=== PATIENT | female | born 1995 | race Caucasian/White ===

== ENCOUNTER 2022-11-10 13:38 | Emergency (ER) | payer OTHER ==
[~2022-11-10] VITALS: Ht 160 cm; Wt 68.0 kg
[~2022-11-10 13:38] MED LIST: ACET-1182 PO; CIPR500T4 PO; GABA-636 PO; ONDA4TAB12 PO
[2022-11-10 13:44] VITALS: BP 142/100
--- NOTE | 2022-11-10 13:50 | NUR ---
27 yo/f presents to ed for moy cath insertion pt reports she normally has a moy cath but accidentally pulled it out yesterday and needs it replaced, pt also reports sacral wound needing packaging. denies any pain, fevers or other symptoms. pmh: paralysis allergies: morphine
--- NOTE | 2022-11-10 13:53 | NUR ---
assisted to [facility] 5
--- NOTE | 2022-11-10 14:40 | NUR ---
# 18 FR Zavala catheter with 10 ml utilizing sterile technique. Immediate return of 100 ml yellow urine noted. Bedside drainage bag placed below level of bladder on leg bag. Urine sample collected and sent to lab. Pt tolerated procedure well.
--- NOTE | 2022-11-10 14:50 | NUR ---
wet to dry packing per ermd robles for sacrum wound completed.
[2022-11-10 14:57] VITALS: BP 138/82
--- NOTE | 2022-11-10 15:11 | NUR ---
Patient discharged with v/s stable. Written and verbal after care instructions given and explained. Patient verbalized understanding. Wheel Chair Assisted. All questions addressed prior to discharge. Advised to follow up with PMD.
== END 2022-11-10 14:57 | disposition home or self-care (01) ==
LOC: MED 13:38
DX: Z46.6 Encounter for fitting and adjustment of urinary device (principal); L89.159 Pressure ulcer of sacral region, unspecified stage; Z79.899 Other long term (current) drug therapy; Z79.2 Long term (current) use of antibiotics; Z88.5 Allergy status to narcotic agent
CPT/HCPCS: 51702; 99281; 99284

== ENCOUNTER 2023-07-08 10:42 | Inpatient (IN) | payer OTHER ==
[~2023-07-08] VITALS: Ht 160 cm; Wt 56.7 kg
[2023-07-08 11:28] VITALS: BP 132/95; PULSE 135; RESP 22; TEMP 98.2; O2SAT 99
[2023-07-08] MEDS ORDERED: NACL 0.9% 2,000 ML IV ONE (12:40)
[2023-07-08 13:39] LABS: BASOPHILS # (AUTO) 0.1 K/uL (0.00-0.22); BASOPHILS % (AUTO) 0.9 % (0.0-2.0); EOSINOPHILS # (AUTO) 0.1 K/uL (0-0.4); EOSINOPHILS % (AUTO) 0.9 % (0.0-4.0); HEMATOCRIT 40.1 % (36-48); HEMOGLOBIN 12.7 g/dL (12.0-16.0); LYMPHOCYTES # (AUTO) 3.1 K/uL (2.5-16.5); LYMPHOCYTES % (AUTO) 22.6 % (20.5-51.1); MEAN CORPUSCULAR HEMOGLOBIN 24 pg (27-31); MEAN CORPUSCULAR HGB CONC 32 g/dL (33-37); MEAN CORPUSCULAR VOLUME 76.2 fL (80-94); MONOCYTES # (AUTO) 0.4 K/uL (0.8-1.0); MONOCYTES % (AUTO) 3.2 % (1.7-9.3); NEUTROPHILS # (AUTO) 9.8 K/uL (1.8-7.7); NEUTROPHILS % (AUTO) 72.4 % (42.2-75.2); PLATELET COUNT (AUTO) 673 K/uL (140-450); RED BLOOD CELL COUNT(AUTO) 5.27 MIL/uL (4.20-5.40); RED CELL DISTRIBUTION WIDTH 18.3 % (11.6-13.7); WHITE BLOOD COUNT (AUTO) 13.5 K/uL (4.8-10.8)
[2023-07-08] MEDS ORDERED: cefTRIAXone 1,000 MG VIAL ONE (13:52)
[2023-07-08 14:19] LABS: ALBUMIN 2.8 g/dL (3.4-5.0); ANION GAP 13.5 (8-16); CALCIUM 9.2 mg/dL (8.5-10.1); CARBON DIOXIDE 27.3 mmol/L (21-32); CREATININE 0.8 mg/dL (0.6-1.3); POTASSIUM 3.8 mmol/L (3.5-5.1); TOTAL BILIRUBIN 0.2 mg/dL (0.0-1.0)
[2023-07-08 14:25] LABS: LACTIC ACID 1.8 mmol/L (0.4-2.0)
[2023-07-08] MEDS ORDERED: HYDROcodone/APAP 5/325 MG 1 TAB TAB PO ONE (14:30)
[2023-07-08] MEDS ORDERED: VANCOMYCIN 1,000 MG in DEXTROSE 5% 250 ML IV ONE (14:30)
[2023-07-08] MEDS ORDERED: VANCOMYCIN 1,000 MG VIAL ONE (15:29)
[2023-07-08] MEDS ORDERED: ONDANSETRON 4 MG/2 ML VIAL IVP PRN (15:30)
[2023-07-08] MEDS ORDERED: ACETAMINOPHEN 325 MG TAB PO PRN (15:30)
[2023-07-08] MEDS ORDERED: MORPHINE SULFATE 2 MG/ML SYR IVP PRN (15:30)
[2023-07-08 15:55] LABS: LEUKOCYTE ESTERASE ,URINE 3+ (NEGATIVE)
[2023-07-08 15:56] LABS: NITRITE, URINE POSITIVE (NEGATIVE); PH,URINE 6.5 (5.0-9.0); PROTEIN,URINE 1+ (NEGATIVE); UROBILINOGEN,URINE 0.2 EU/dL (0.2 - 1)
[2023-07-08 15:57] LABS: APPEARANCE,URINE CLOUDY (CLEAR); BILIRUBIN,URINE NEGATIVE (NEGATIVE); BLOOD, URINE 3+ (NEGATIVE); COLOR,URINE AMBER (YELLOW); UGLUCOSE NEGATIVE (NEGATIVE)
[2023-07-08 15:59] LABS: BACTERIA,URINE >30 (MANY) /HPF (None Seen); RBC,URINE 20-50 /HPF (0-5); SQUAMOUS EPITHELIAL CELL,UR 0-3 (FEW) /LPF (0-3 (FEW)); WBC,URINE 16-25 (MOD) /HPF (0-5)
[2023-07-08 16:00] LABS: MUCUS,URINE 2+ /LPF (None Seen)
[2023-07-08] MEDS ORDERED: diphenhydrAMINE 50 MG/ML VIAL ONE (16:13)
[2023-07-08] MEDS ORDERED: diphenhydrAMINE 50 MG/ML VIAL IVP ONE (16:15)
[2023-07-08] MEDS ORDERED: methylPREDNISolone SS 125 MG/2 ML VIAL IVP SCH (16:15)
[2023-07-08] MEDS: LORazepam 1 MG TAB PO PRN (16:22)
[2023-07-08] MEDS: NACL 0.9% 1,000 ML IV SCH ×2 (20:00→23:54)
[2023-07-08] MEDS ORDERED: PIPERACILLIN/TAZOBACTAM 3.375 GM VIAL IV ONE (21:05)
[2023-07-08] MEDS: PIPERACILLIN/TAZOBACTAM 3.375 GM in DEXTROSE 5% 50 ML IV SCH (21:15)
[2023-07-09] MEDS: LORazepam 1 MG TAB PO PRN (02:02)
[2023-07-09] MEDS ORDERED: PIPERACILLIN/TAZOBACTAM 3.375 GM VIAL IV ONE ×2 (05:10→13:08)
[2023-07-09] MEDS: PIPERACILLIN/TAZOBACTAM 3.375 GM in DEXTROSE 5% 50 ML IV SCH ×2 (06:00→13:10)
[2023-07-09 07:39] LABS: BASOPHILS % (AUTO) 0.5 % (0.0-2.0); HEMOGLOBIN 11.1 g/dL (12.0-16.0); LYMPHOCYTES # (AUTO) 1.8 K/uL (2.5-16.5); MEAN CORPUSCULAR HEMOGLOBIN 24 pg (27-31); MEAN CORPUSCULAR HGB CONC 32 g/dL (33-37); MEAN CORPUSCULAR VOLUME 75.9 fL (80-94); MONOCYTES # (AUTO) 0.1 K/uL (0.8-1.0); MONOCYTES % (AUTO) 1.4 % (1.7-9.3); NEUTROPHILS # (AUTO) 5.1 K/uL (1.8-7.7); NEUTROPHILS % (AUTO) 72.1 % (42.2-75.2); PLATELET COUNT (AUTO) 592 K/uL (140-450); RED BLOOD CELL COUNT(AUTO) 4.61 MIL/uL (4.20-5.40); RED CELL DISTRIBUTION WIDTH 17.9 % (11.6-13.7); WHITE BLOOD COUNT (AUTO) 7.1 K/uL (4.8-10.8)
[2023-07-09] MEDS: NACL 0.9% 1,000 ML IV SCH (07:48)
[2023-07-09 08:02] LABS: ALBUMIN 1.9 g/dL (3.4-5.0); ANION GAP 12.1 (8-16); CALCIUM 8.4 mg/dL (8.5-10.1); CARBON DIOXIDE 25.2 mmol/L (21-32); CREATININE 0.6 mg/dL (0.6-1.3); MAGNESIUM 1.8 mg/dL (1.8-2.4); POTASSIUM 4.3 mmol/L (3.5-5.1); TOTAL BILIRUBIN 0.2 mg/dL (0.0-1.0); TOTAL PROTEIN, SERUM 7.2 g/dL (6.4-8.2)
[2023-07-09] MEDS ORDERED: HYDROmorphone 1 MG/ML AMP IVP PRN (12:59)
[2023-07-09] MEDS ORDERED: AMOX1TAB8 PO (13:35)
[2023-07-09 16:08] VITALS: BP 118/70; PULSE 89; RESP 20; TEMP 98; O2SAT 100
== END 2023-07-09 14:21 | disposition home or self-care (01) | DRG 380 ==
LOC: MED 10:42 → MTU 15:33 → MMU 15:33 → MTU 18:52
PROVIDERS: ADMIT Hospitalist; ATTEND Hospitalist
DX: L89.159 Pressure ulcer of sacral region, unspecified stage (principal); G82.20 Paraplegia, unspecified; R65.10 Systemic inflammatory response syndrome (SIRS) of non-infectious origin without acute organ dysfunction; E44.0 Moderate protein-calorie malnutrition; Z88.5 Allergy status to narcotic agent; Z79.1 Long term (current) use of non-steroidal anti-inflammatories (NSAID); Z79.899 Other long term (current) drug therapy; Z79.2 Long term (current) use of antibiotics; Z68.22 Body mass index [BMI] 22.0-22.9, adult
CPT/HCPCS: 36415; 80053; 81001; 83605; 83735; 85025; 85651; 86140; 87040; 87086; 96365; 96366; 96367; 96375; 99285; J0696; J1170; J1200; J2543; J2930; J3370; J7060; Q9967

== ENCOUNTER 2023-10-02 14:00 | Inpatient (IN) | payer MEDICAID, OTHER ==
[~2023-10-02] VITALS: Ht 162.6 cm; Wt 54.4 kg
[~2023-10-02 14:00] MED LIST changes: +AMOX1TAB8 PO; -CIPR500T4 PO
[2023-10-02 14:09] VITALS: BP 107/46; PULSE 144; RESP 20; TEMP 101.6; O2SAT 96
[2023-10-02 14:16] VITALS: O2SAT 96
[2023-10-02] MEDS: NACL 0.9% 1,000 ML IV ONE (15:22)
[2023-10-02] MEDS ORDERED: cefTRIAXone 1,000 MG VIAL ONE (15:31)
[2023-10-02] MEDS ORDERED: ONDANSETRON 4 MG/2 ML VIAL ONE (15:32)
[2023-10-02 15:44] LABS: ANION GAP 12.7 (8-16); CALCIUM 8.1 mg/dL (8.5-10.1); CARBON DIOXIDE 26.6 mmol/L (21-32); CREATININE 0.7 mg/dL (0.6-1.3); POTASSIUM 4.3 mmol/L (3.5-5.1)
[2023-10-02 15:54] LABS: LACTIC ACID 0.6 mmol/L (0.4-2.0)
[2023-10-02] MEDS: ONDANSETRON 4 MG/2 ML VIAL IVP ONE (15:57)
[2023-10-02] MEDS: cefTRIAXone 1,000 MG in DEXT 5% MINI-BAG PLUS 50 ML IV ONE (15:57)
[2023-10-02 16:03] LABS: APPEARANCE,URINE CLEAR (CLEAR); BILIRUBIN,URINE 2+ (NEGATIVE); BLOOD, URINE NEGATIVE (NEGATIVE); COLOR,URINE YELLOW (YELLOW); LEUKOCYTE ESTERASE ,URINE 2+ (NEGATIVE); NITRITE, URINE POSITIVE (NEGATIVE); PROTEIN,URINE 1+ (NEGATIVE); UGLUCOSE NEGATIVE (NEGATIVE)
[2023-10-02 16:03] LABS: HEMOGLOBIN 8.5 g/dL (12.0-16.0); MEAN CORPUSCULAR HEMOGLOBIN 22 pg (27-31); MEAN CORPUSCULAR HGB CONC 32 g/dL (33-37); MEAN CORPUSCULAR VOLUME 70.1 fL (80-94); PLATELET COUNT (AUTO) 1030 K/uL (140-450); RED BLOOD CELL COUNT(AUTO) 3.85 MIL/uL (4.20-5.40); RED CELL DISTRIBUTION WIDTH 20.8 % (11.6-13.7)
[2023-10-02] MEDS ORDERED: ALBUTEROL 0.083% 2.5 MG/3 ML NEBU INH PRN (16:30)
[2023-10-02 16:34] LABS: BACTERIA,URINE >30 (MANY) /HPF (None Seen); ICTOTEST NEGATIVE (NEGATIVE); RBC,URINE 0-5 /HPF (0-5); SQUAMOUS EPITHELIAL CELL,UR 4-10 (MOD) /LPF (0-3 (FEW)); WBC,URINE 16-25 (MOD) /HPF (0-5); YEAST,URINE Few /HPF (None Seen)
[2023-10-02] MEDS: NACL 0.9% 1,000 ML IV SCH (16:54)
[2023-10-02] MEDS: ACETAMINOPHEN 325 MG TAB PO PRN (18:18)
[2023-10-02 18:35] LABS: LYMPHOCYTES % (MANUAL) 16 % (20-46); MONOCYTES % (MANUAL) 4 % (5-12); PLATELET ESTIMATE INCREASED
[2023-10-02 18:36] LABS: ANISOCYTOSIS 2+; HYPOCHROMASIA 1+; POLYCHROMASIA 1+
[2023-10-02 18:54] VITALS: O2SAT 99
[2023-10-02 20:06] VITALS: O2SAT 99
[2023-10-02 20:35] VITALS: PULSE 109; RESP 16; O2SAT 97
[2023-10-02 20:55] VITALS: PULSE 110
[2023-10-02] MEDS: ZOLPIDEM 5 MG TAB PO PRN (22:52)
[2023-10-03] VITALS (7 sets, daily range): BP systolic 100–122; BP diastolic 53–74; PULSE 97–127; RESP 16–20; TEMP 96–100.4; O2SAT 96–99
[2023-10-03] MEDS: LORazepam 2 MG/ML VIAL IVP PRN (00:34)
[2023-10-03 06:51] LABS: ANION GAP 11.5 (8-16); CALCIUM 7.5 mg/dL (8.5-10.1); CARBON DIOXIDE 23.7 mmol/L (21-32); CREATININE 0.6 mg/dL (0.6-1.3); POTASSIUM 4.2 mmol/L (3.5-5.1)
[2023-10-03] MEDS: ENOXAPARIN 40 MG/0.4 ML SYR SUBQ SCH (08:24)
[2023-10-03 08:25] LABS: BASOPHILS # (AUTO) 0.1 K/uL (0.00-0.22); BASOPHILS % (AUTO) 0.6 % (0.0-2.0); EOSINOPHILS % (AUTO) 0.3 % (0.0-4.0); HEMATOCRIT 22.7 % (36-48); HEMOGLOBIN 7.3 g/dL (12.0-16.0); LYMPHOCYTES # (AUTO) 2.2 K/uL (2.5-16.5); LYMPHOCYTES % (AUTO) 14.9 % (20.5-51.1); MEAN CORPUSCULAR HEMOGLOBIN 22 pg (27-31); MEAN CORPUSCULAR HGB CONC 32 g/dL (33-37); MONOCYTES # (AUTO) 0.9 K/uL (0.8-1.0); MONOCYTES % (AUTO) 6.3 % (1.7-9.3); NEUTROPHILS # (AUTO) 11.7 K/uL (1.8-7.7); NEUTROPHILS % (AUTO) 77.9 % (42.2-75.2); PLATELET COUNT (AUTO) 802 K/uL (140-450); RED BLOOD CELL COUNT(AUTO) 3.25 MIL/uL (4.20-5.40); RED CELL DISTRIBUTION WIDTH 21.6 % (11.6-13.7)
[2023-10-03] MEDS: LORazepam 2 MG/ML VIAL IM SCH (13:44)
[2023-10-03] MEDS: KETOROLAC 30 MG/ML VIAL IVP PRN (15:36)
[2023-10-03] MEDS: HYDROcodone/APAP 5/325 MG 1 TAB TAB PO PRN (19:01)
[2023-10-03] MEDS ORDERED: MEROPENEM 1,000 MG in NACL 0.9% 50 ML IV SCH (21:00)
[2023-10-03] MEDS: MEROPENEM 1,000 MG in NACL 0.9% 50 ML IV SCH (21:50)
[2023-10-03] MEDS: MEROPENEM 1,000 MG VIAL IV ONE (21:51)
[2023-10-04] VITALS: BP 102/58; PULSE 110; RESP 19; TEMP 96.9; O2SAT 100
[2023-10-04] MEDS: KETOROLAC 30 MG/ML VIAL IVP ONE (02:56)
[2023-10-04] MEDS: MEROPENEM 1,000 MG VIAL IV ONE (05:03)
[2023-10-04 06:55] LABS: BASOPHILS # (AUTO) 0.1 K/uL (0.00-0.22); BASOPHILS % (AUTO) 0.7 % (0.0-2.0); EOSINOPHILS # (AUTO) 0.2 K/uL (0-0.4); EOSINOPHILS % (AUTO) 1.9 % (0.0-4.0); HEMOGLOBIN 7.2 g/dL (12.0-16.0); LYMPHOCYTES # (AUTO) 2.8 K/uL (2.5-16.5); LYMPHOCYTES % (AUTO) 27.6 % (20.5-51.1); MEAN CORPUSCULAR HEMOGLOBIN 23 pg (27-31); MEAN CORPUSCULAR HGB CONC 33 g/dL (33-37); MEAN CORPUSCULAR VOLUME 70.3 fL (80-94); MONOCYTES # (AUTO) 0.8 K/uL (0.8-1.0); MONOCYTES % (AUTO) 7.8 % (1.7-9.3); NEUTROPHILS # (AUTO) 6.2 K/uL (1.8-7.7); PLATELET COUNT (AUTO) 718 K/uL (140-450); RED BLOOD CELL COUNT(AUTO) 3.13 MIL/uL (4.20-5.40); RED CELL DISTRIBUTION WIDTH 22.2 % (11.6-13.7); WHITE BLOOD COUNT (AUTO) 10.1 K/uL (4.8-10.8)
[2023-10-04 07:07] LABS: ANION GAP 10.6 (8-16); CALCIUM 7.9 mg/dL (8.5-10.1); CREATININE 0.6 mg/dL (0.6-1.3); POTASSIUM 3.6 mmol/L (3.5-5.1)
[2023-10-04 08:00] VITALS: BP 110/69; PULSE 104; RESP 18; TEMP 97.4; O2SAT 98
[2023-10-04] MEDS ORDERED: HYDROcodone/APAP 10/325 MG 1 TAB TAB PO PRN (13:40)
[2023-10-04] MEDS: MORPHINE SULFATE 2 MG/ML SYR IVP PRN (14:07)
[2023-10-04] MEDS: HYDROcodone/APAP 5/325 MG 1 TAB TAB PO PRN (15:18)
[2023-10-04 16:00] VITALS: BP 130/87; PULSE 94; RESP 18; TEMP 97; O2SAT 96
[2023-10-04] MEDS: HALOPERIDOL IM 5 MG/ML VIAL IM ONE (19:58)
[2023-10-04 20:00] VITALS: BP 121/88; PULSE 111; PULSE 94; RESP 18; RESP 20; TEMP 98.9; O2SAT 98
[2023-10-04] MEDS: THERAHONEY GEL 42.5 GM TP SCH (21:00)
[2023-10-04] MEDS: PIPERACILLIN/TAZOBACTAM 3.375 GM in DEXTROSE 5% 50 ML IV SCH (23:24)
[2023-10-04] MEDS: PIPERACILLIN/TAZOBACTAM 3.375 GM VIAL IV ONE (23:37)
[2023-10-05] MEDS: FOAM DRESSING TP SCH (00:39)
[2023-10-05 04:00] VITALS: BP 107/71; PULSE 85; RESP 20; TEMP 97.3; O2SAT 98
[2023-10-05] MEDS: PIPERACILLIN/TAZOBACTAM 3.375 GM VIAL IV ONE (05:24)
[2023-10-05] MEDS ORDERED: PIPERACILLIN/TAZOBACTAM 3.375 GM in DEXTROSE 5% 50 ML IV SCH ×2 (06:00)
[2023-10-05 08:00] VITALS: PULSE 111; RESP 18; O2SAT 98
[2023-10-05] MEDS: LIDOCAINE 5% 1 EA PATCH TP SCH (09:00)
[2023-10-05 11:30] VITALS: BP 108/64; PULSE 111; RESP 18; TEMP 97.5; O2SAT 99
[2023-10-05] MEDS: THERAHONEY GEL 42.5 GM TP SCH (13:00)
[2023-10-05] MEDS: KETOROLAC 15 MG/ML VIAL IVP PRN (14:01)
[2023-10-05] MEDS: LORazepam 2 MG/ML VIAL IM/IVP PRN (14:29)
[2023-10-05 16:30] VITALS: BP 111/70; PULSE 99; RESP 18; TEMP 97.2; O2SAT 98
[2023-10-05] MEDS ORDERED: THERAHONEY GEL 42.5 GM TP PRN (16:55)
[2023-10-05 20:00] VITALS: BP 115/65; PULSE 109; RESP 18; TEMP 97.3; O2SAT 99
[2023-10-06] MEDS: MORPHINE SULFATE 2 MG/ML SYR IVP PRN (01:31)
[2023-10-06] MEDS: ONDANSETRON 4 MG/2 ML VIAL IVP PRN (02:19)
[2023-10-06 04:00] VITALS: BP 119/67; PULSE 107; RESP 18; TEMP 97.5; O2SAT 99
[2023-10-06 07:57] VITALS: TEMP 97.6
[2023-10-06] MEDS: levoFLOXacin 500 MG TAB PO SCH (08:31)
[2023-10-06] MEDS: MEROPENEM 1,000 MG in NACL 0.9% 50 ML IV SCH (12:34)
[2023-10-06] MEDS: THERAHONEY GEL 42.5 GM TP SCH (12:42)
[2023-10-06 20:00] VITALS: BP 118/66; PULSE 101; RESP 18; TEMP 97.9; O2SAT 96
[2023-10-07] MEDS: HALOPERIDOL IM 5 MG/ML VIAL IM PRN (01:11)
[2023-10-07 08:07] VITALS: TEMP 98.5
[2023-10-07] MEDS: ESCITALOPRAM 20 MG TAB PO SCH (08:48)
[2023-10-07] MEDS ORDERED: AMOX-999 PO (13:55)
[2023-10-07] MEDS ORDERED: ESCI20TA49 PO (13:55)
[2023-10-07] MEDS ORDERED: LEVO-481 PO (13:55)
[2023-10-07 20:00] VITALS: PULSE 110; RESP 18; O2SAT 98
[2023-10-07 21:00] VITALS: BP 137/86; PULSE 101; RESP 18; TEMP 98; O2SAT 98
[2023-10-07] MEDS ORDERED: AMOXICILLIN 500 MG CAP ONE (22:25)
[2023-10-07] MEDS: MORPHINE SULFATE 2 MG/ML SYR IM/IVP PRN (22:40)
[2023-10-08] MEDS: AMOXIL/CLAVULANATE 500/125 MG 1 TAB PO SCH (00:30)
[2023-10-08] MEDS: LORazepam 2 MG/ML VIAL IM/IVP PRN (02:52)
[2023-10-08 08:00] VITALS: BP 117/80; PULSE 101; RESP 18; TEMP 98.1; O2SAT 98
[2023-10-08] MEDS: LORazepam 1 MG TAB PO SCH (11:50)
[2023-10-08 16:00] VITALS: BP 127/56; PULSE 66; RESP 18; TEMP 97.4; O2SAT 98
[2023-10-08] MEDS: LORazepam 1 MG TAB PO PRN (18:54)
[2023-10-08 20:00] VITALS: PULSE 80; RESP 18; O2SAT 98
[2023-10-09] VITALS: BP 118/64; PULSE 70; RESP 18; TEMP 98.2; O2SAT 97
[2023-10-09 20:00] VITALS: TEMP 97.8
[2023-10-10] VITALS: BP 138/65; PULSE 82; RESP 18; TEMP 97.8; O2SAT 97
[2023-10-10 08:00] VITALS: BP 118/74; PULSE 94; RESP 18; TEMP 97.8; O2SAT 99
[2023-10-10 08:24] VITALS: PULSE 94; RESP 18; O2SAT 99
[2023-10-10 16:00] VITALS: BP 131/86; PULSE 103; RESP 18; TEMP 97.6; O2SAT 98
[2023-10-10 20:00] VITALS: BP 124/81; PULSE 127; RESP 20; TEMP 97.2; O2SAT 99
[2023-10-10] MEDS: ZOLPIDEM 5 MG TAB PO SCH (23:29)
[2023-10-11] VITALS: BP 135/36; PULSE 68; RESP 18; TEMP 97.9; O2SAT 98
[2023-10-11 08:00] VITALS: BP 122/87; PULSE 104; RESP 18; TEMP 97.9; O2SAT 100
[2023-10-11] MEDS: HALOPERIDOL IM 5 MG/ML VIAL IM PRN (09:58)
[2023-10-11 13:40] VITALS: BP 135/36; PULSE 104; RESP 18; TEMP 97.9
== END 2023-10-11 15:10 | DRG 380 ==
LOC: MED 14:00 → MTU 16:34
PROVIDERS: ADMIT Student in an Organized Health Care Education/Training Program; ATTEND Student in an Organized Health Care Education/Training Program
DX: L89.154 Pressure ulcer of sacral region, stage 4 (principal); G82.20 Paraplegia, unspecified; R65.10 Systemic inflammatory response syndrome (SIRS) of non-infectious origin without acute organ dysfunction; T18.2XXA Foreign body in stomach, initial encounter; T83.518A Infection and inflammatory reaction due to other urinary catheter, initial encounter; N39.0 Urinary tract infection, site not specified; B96.20 Unspecified Escherichia coli [E. coli] as the cause of diseases classified elsewhere; Z91.199 Patient's noncompliance with other medical treatment and regimen due to unspecified reason; Z88.5 Allergy status to narcotic agent; Y93.89 Activity, other specified; Y92.89 Other specified places as the place of occurrence of the external cause; Y99.8 Other external cause status; Z79.899 Other long term (current) drug therapy; W44.B9XA Other plastic object entering into or through a natural orifice, initial encounter
CPT/HCPCS: 36415; 71045; 74018; 80048; 81001; 83605; 83880; 84484; 85025; 85651; 86140; 87040; 87070; 87081; 87086; 87186; 93005; 96361; 96365; 96375; 97163-GP; 97530; 99285; J0696; J1630; J1650; J1885; J2060; J2185; J2270; J2405; J2543; J7060; Q0163